=== PATIENT | female | born 2000 | race Two or more races ===

== ENCOUNTER 2024-08-29 09:02 | Observation (INO) | payer SELFPAY ==
[~2024-08-29] VITALS: Ht 175.3 cm; Wt 84.8 kg
[2024-08-29 10:27] LABS: Basophils # (auto) 0 10 ^3/uL (0-0.2); Basophils % (auto) 0.4 % (0.0-2.0); Eosinophils # (auto) 0 10 ^3/uL (0-0.8); Eosinophils % (auto) 0.5 % (0.0-7.0); Hemoglobin 10.9 g/dL (12.2-16.2); Lymphocytes # (auto) 2.1 10 ^3/uL (0.4-5.4); Monocytes # (auto) 0.7 10 ^3/uL (0-1.3); Red Cell Distribution Width 14.8 % (11.8-14.3)
[2024-08-29 10:29] LABS: Hematocrit 32.6 % (36.0-46.0); Lymphocytes % (auto) 21.8 % (10.0-50.0); Mean Corpuscular Hemoglobin 25.1 pg (28.0-32.0); Mean Corpuscular Hgb Conc. 33.3 g/dL (32.0-36.0); Mean Corpuscular Volume 75.2 fL (80.0-100.0); Monocytes % (auto) 6.9 % (0.0-12.0); Neutrophils # (auto) 6.7 10 ^3/uL (1.6-8.6); Neutrophils % (auto) 70.4 % (37.0-80.0); Nucleated Red Blood Cells % 0.1 %; Platelet Count (auto) 281 10^3/uL (140-450); Red Blood Cells 4.34 10^6/uL (4.0-5.20); White Blood Cell 9.5 10^3/uL (4.4-10.8)
[2024-08-29 10:33] LABS: Albumin 3.9 g/dL (3.2-4.8); Alkaline Phosphatase 134 U/L (46-116); Anion Gap 7 (5-15); Aspartate Aminotransferase 10 U/L (13-40); BUN/Creatinine Ratio 15.8 (10.0-20.0); Blood Urea Nitrogen 9 mg/dL (9-23); Calcium 9.3 mg/dL (8.7-10.4); Carbon Dioxide 21 mmol/L (20-31); Chloride 107 mmol/L (98-107); Glucose 86 mg/dL (74-106); Sodium 135 mmol/L (136-145)
[2024-08-29 10:34] LABS: Bilirubin, Total 0.8 mg/dL (0.2-1.0); Total Protein 6.5 g/dL (5.7-8.2)
[2024-08-29 10:45] LABS: Alanine Aminotransferase 9 U/L (7-40)
[2024-08-29 10:54] LABS: INR 0.97 (0.9-1.15); Partial Thromboplastin Time 24.5 SEC (24.5-34.5); Prothrombin Time 10.3 sec (9.3-11.8)
[2024-08-29 11:11] LABS: Uric Acid 3.8 mg/dL (3.1-7.8)
--- NOTE | 2024-08-29 11:13 | DVH ---
BIOPHYSICAL PROFILE HISTORY: limited care 39 weeks cramping TECHNIQUE: Multiple transabdominal real-time grayscale sonographic images through the gravid uterus of the fetus with duplex Doppler color flow and M-mode spectral analysis FINDINGS: BIOPHYSICAL PROFILE: breathing score: 2 movement score: 2 tone score: 2 Quantitative RAISA score: 2 (RAISA: 12.4 Cm.) Total score: 8/8 Single live fetus in cephalic presentation. heart rate 162 beats per minute. Anterior placenta without previa or abruption IMPRESSION: 1. Biophysical profile score: 8/8 HS:Y
--- NOTE | 2024-08-29 11:16 | DVH ---
LIMITED OB ULTRASOUND > 14 WKS: HISTORY: limited care TECHNIQUE: Multiple real-time grayscale images of the gravid uterus with duplex Doppler color flow an d M-mode spectral analysis. TRANSDUCER: Transabdominal FINDINGS: IUP single live fetus at 37 weeks 3 days based on composite averages of the BPD, head circumference, abdominal circumference and femur length Estimated weight 3250 grams heart rate 165 beats per minute RAISA 12.4 cm Cervix not well-visualized Cephalic Presentation Anterior placenta without previa or abruption. IMPRESSION: 1. IUP single live fetus at 37 weeks 3 days AUA corresponding to an ROCÍO of 09/16/2024. HS:Y
[2024-08-29 11:27] LABS: Urine Bacteria FEW /hpf (None Seen); Urine Blood Negative /uL (Negative); Urine Clarity Clear (Clear); Urine Color Light-Yellow (Yellow); Urine Hyaline Cast FEW /lpf (0 - 2); Urine Protein, UAD Negative (Negative); Urine Specific Gravity 1.008 (1.001-1.035); Urine Urobilinogen Normal (Negative); Urine WBC 1 /hpf (0 - 5); Urine pH 5.5 (5.0-9.0)
[2024-08-29] MEDS: LACTATED RINGER'S 1,000 ML IV SCH (11:30)
[2024-08-29 11:36] LABS: Amphetamine Screen, Urine Neg (NEGATIVE)
[2024-08-29 11:38] LABS: Barbiturate Scree,Urine Neg (NEGATIVE); Benzodiazephine Screen, Urine Neg (NEGATIVE); Cannabinoid Screen, Urine Neg (NEGATIVE); Cocaine Screen, Urine Neg (NEGATIVE); Opiate Scree,Urine Neg (NEGATIVE); Phencyclidine Screen, Urine Neg (NEGATIVE)
--- NOTE | 2024-08-30 05:20 | DVHDS2 ---
Obstetrics Discharge Summary Obstetrics Discharge Summary Date of Admission: Aug 29, 2024 Date of Discharge: Aug 29, 2024 Reason For Admission: Observational/Evaluation ( Status) Procedures: NST (/maternal status), Ultrasound Discharge Diagnosis: Others (Reassuring and maternal status) Discharge Information: Activity (Pelvic rest), Diet (Routine), Medications (None), Instructions (Kick count labor precaution SROM precautions), Discharge to (Home), Discarge date (August 29, 2024) BRANDO ALDANA DO Aug 30, 2024 05:20
[2024-08-30 08:06] LABS: RPR Non Reactive (Non Reactive)
[2024-08-30 10:06] LABS: Rubella Antibodies, IgG 5.37 index (Immune >0.99)
== END 2024-08-29 12:51 | disposition home or self-care (01) ==
LOC: ER 09:02 → LDRP 09:14
PROVIDERS: ADMIT Obstetrics & Gynecology; ATTEND Obstetrics & Gynecology
DX: O62.9 Abnormality of forces of labor, unspecified (principal); Z98.890 Other specified postprocedural states; Z79.899 Other long term (current) drug therapy; Z3A.37 37 weeks gestation of pregnancy
CPT/HCPCS: 36415; 59025; 76805; 76818; 80053; 80307; 81001; 81002; 84550; 85025; 85384; 85610; 85730; 86592; 86703; 86762; 86780; 86803; 86850; 86900; 86901; 87340; 94760; 96360; G0378

== ENCOUNTER 2024-09-06 16:39 | Observation (INO) | payer SELFPAY ==
--- NOTE | 2024-09-06 19:02 | DVH ---
EXAM: US OBSTERICAL LIMITED HISTORY: limited PNC labor check previous COMPARISON: US OB ULTRASOUND COMP GTR 14 WKS on DOS: 08/29/24 TECHNIQUE: Multiple transabdominal real-time grayscale sonographic images through the gravid uterus of the fetus with duplex Doppler color flow and M-mode spectral analysis Findings/Impression: Single live intrauterine in vertex presentation with heart rate of 134 bpm. Placenta is anterior in location without evidence of previa or abruption. Cervix is closed and measur es 4.4 cm in length. Amniotic fluid is within normal limits with RAISA 13.2 cm and MVP 6.1 cm. Nuchal cord. Normal RAISA (5-25 cm) Normal MVP (2-8 cm)
--- NOTE | 2024-09-07 07:43 | DVHDS2 ---
Physician Discharge Progress N Final Diagnosis: cramping Operations or Procedures: Operations or Procedures nst,sono Condition on Discharge: Good Disposition: Home Discharge Instructions: Diet: Regular Activity: No Restrictions, As Tolerated Medications: na Follow Up Care: Specialist: 3d Discharge Statement: "Patient was advised to return to the ER or call 911 if any headaches, dizziness, shortness of breath, chest pain, abdominal pain, bleeding, fevers, or worsening of medical condition. Patient was counseled about treatment plan, medications, possible side effects, patientverbalized understanding. All questions were answered to the best of my ability. This discharge took greater then 30 minutes in planning, reviewing documentation, counseling the patient, and discussing with other team members." ASMITA WESTON DO Sep 07, 2024 07:43
== END 2024-09-06 19:27 | disposition home or self-care (01) ==
LOC: LDRP 16:39
PROVIDERS: ADMIT Obstetrics & Gynecology; ATTEND Obstetrics & Gynecology
DX: O62.9 Abnormality of forces of labor, unspecified (principal); Z3A.38 38 weeks gestation of pregnancy; Z98.890 Other specified postprocedural states; Z79.899 Other long term (current) drug therapy
CPT/HCPCS: 59025; 76815; 81002; 94760; G0378